=== PATIENT | male | born 2000 | race Caucasian/White ===

== ENCOUNTER 2023-12-28 00:05 | Outpatient (CLI) | payer OTHER | END 2023-12-28 23:59 | disposition critical access hospital (66) | LOC: EMS 00:05 | DX: R07.9 Chest pain, unspecified (principal); R68.84 Jaw pain; M79.602 Pain in left arm | CPT/HCPCS: A0425; A0427 ==

== ENCOUNTER 2023-12-28 00:23 | Emergency (ER) | payer OTHER ==
--- NOTE | 2023-12-28 00:23 | ED Physician Documentation ---
PD HPI CHEST PAIN - Stated complaint Stated Complaint: CP - History obtained from History obtained from: Patient - Additional information Additional information: HPI from patient. JEFF. Patient complains of left parasternal chest pain radiating to his jaw and down his left upper extremity. Symptoms started 2 days ago without inciting event. He says the pain is constant, waxing and waning. Symptoms seem worse when lying supine. Patient denies history of similar symptoms. He denies leg swelling, dyspnea, fever, cough. EMS noted initial BP of 192/110 and patient was c/o 9/10 pain; he was given 324 ASA and SLNTG x 1 and his pain decreased to 1/10 and BP 172/102. FSBS was 282; patient says he has been told he has had high blood sugars and is "prediabetic". Review of Systems Constitutional: reports: Reviewed and negative Cardiac: reports: Chest pain / pressure. denies: Palpitations, Pedal edema, Calf pain Respiratory: reports: Reviewed and negative GI: denies: Abdominal Pain, Nausea, Vomiting PD PAST MEDICAL HISTORY - Past Medical History Past Medical History: No - Past Surgical History General: Appendectomy - Present Medications Home Medications: Ambulatory Orders Medication Instructions Recorded Confirmed metFORMIN [Glucophage] 500 mg PO BIDWM #60 tablet 12/28/23 oxyCODONE [Roxicodone] 5 mg PO Q4-6H PRN #14 tablet 12/28/23 - Allergies Allergies/Adverse Reactions: Allergies Allergy/AdvReac Type Severity Reaction Status Date / Time Unable to Assess Allergy Verified 12/28/23 00:39 PD ED PE NORMAL - Vitals Vital signs reviewed: Yes - General General: Alert and oriented X 3, No acute distress, Well developed/nourished - Neck Neck: Supple, no meningeal sign - Cardiac Cardiac: RRR, No murmur, No gallop, No rub - Respiratory Respiratory: No respiratory distress, Clear bilaterally - Abdomen Abdomen: Soft, Non tender - Extremities Extremities: No edema Results - Vitals Vitals: Oxygen O2 Source Room air - EKG (time done) No standard instances EKG releavant findings:: EKG personally interpreted by author of this note. Relevant findings are: Rate: Rate (enter#) (99) Rhythm: NSR [place]: Normal Intervals: Normal [place] QRS: Normal Ischemia: Normal ST segments Computer interpretation: Disagree with computer (no ST depressions) #2 EKG releavant findings:: EKG personally interpreted by author of this note. Relevant findings are: Rate: Rate (enter#) (95) Rhythm: NSR [place]: Normal Intervals: Normal [place] QRS: Normal Ischemia: Normal ST segments Compare to prior EKG: Unchanged from prior EKG Computer interpretation: Disagree with computer (no ST depressions) - Labs Labs: Laboratory Tests 12/28/23 12/28/23 12/28/23 00:55 00:55 00:55 WBC 15.2 H RBC 5.41 Hgb 14.8 Hct 44.6 MCV 82.4 MCH 27.4 MCHC 33.2 RDW 12.2 Plt Count 345 MPV 9.6 Neut # (Auto) 12.1 H Lymph # (Auto) 2.2 [place] # (Auto) 0.7 Eos # (Auto) 0.1 Baso # (Auto) 0.1 Absolute Nucleated RBC 0.00 Nucleated RBC % 0.0 D-Dimer Sodium 134 L Potassium 3.9 Chloride 99 L Carbon Dioxide 26 Anion Gap 9.0 BUN 8 Creatinine 0.8 Estimated GFR (MDRD) 120 Glucose 346 H Estimat Average Glucose Hemoglobin A1c % Calcium 9.2 Total Bilirubin 0.5 AST 19 ALT 38 Alkaline Phosphatase 91 Troponin I High Sens 69.0 H* Total Protein 7.7 Albumin 4.1 Globulin 3.6 Albumin/Globulin Ratio 1.1 Lipase 15 Serum Ketones 12/28/23 12/28/23 12/28/23 00:55 00:55 01:12 WBC RBC Hgb Hct MCV MCH MCHC RDW Plt Count MPV Neut # (Auto) Lymph # (Auto) [place] # (Auto) Eos # (Auto) Baso # (Auto) Absolute Nucleated RBC Nucleated RBC % D-Dimer 207.1 Sodium Potassium Chloride Carbon Dioxide Anion Gap BUN Creatinine Estimated GFR (MDRD) Glucose Estimat Average Glucose 275 H Hemoglobin A1c % 11.2 H Calcium Total Bilirubin AST ALT Alkaline Phosphatase Troponin I High Sens Total Protein Albumin Globulin Albumin/Globulin Ratio Lipase Serum Ketones NEGATIVE 12/28/23 03:10 WBC RBC Hgb Hct MCV MCH MCHC RDW Plt Count MPV Neut # (Auto) Lymph # (Auto) [place] # (Auto) Eos # (Auto) Baso # (Auto) Absolute Nucleated RBC Nucleated RBC % D-Dimer Sodium Potassium Chloride Carbon Dioxide Anion Gap BUN Creatinine Estimated GFR (MDRD) Glucose Estimat Average Glucose Hemoglobin A1c % Calcium Total Bilirubin AST ALT Alkaline Phosphatase Troponin I High Sens 68.7 H* Total Protein Albumin Globulin Albumin/Globulin Ratio Lipase Serum Ketones - Rads (name of study) chest xray Relevant Findings:: Prelim report reviewed, See rad report PD Medical Decision Making - ED course Complexity details: reviewed results, re-evaluated patient, considered differential, d/w patient ED course: Mild leukocytosis on CBC (WBC 15.2). D-dimer is within normal range, and there are no concerning findings on EKG including a repeat EKG performed during ED stay when patient had recurrence of the chest pain. High-sensitivity troponin is 69 and a 2-hour repeat is unchanged (68.7). No abnormalities on chest x-ray. Blood sugar is 346 but serum ketones negative. He arrives in NAD but, during ED stay, he had recurrence of the chest pain appeared to be in mild to moderate painful distress. He is given 2 mg of IV morphine which resulted in rapid and c omplete relief of his symptoms. Etiology of patient's symptoms is not apparent at this time. We discussed the results and return precautions are reviewed. Given the hyperglycemia as well as the patient's report that he is "prediabetic", I am prescribing a 1-month supply of metformin. Hemoglobin A1c is drawn and sent, result pending at time of discharge (PCP can follow up with results). I am also prescribing a short course of oxycodone to be used PRN for recurrence of chest pain Departure - Departure Disposition: 01 Home, Self Care Clinical Impression: Hyperglycemia Chest pain Qualifiers: Chest pain type: unspecified Qualified Code(s): R07.9 - Chest pain, unspecified Condition: Good Instructions: ED Chest Pain Atypical Unkn Cause, ED Hyperglycemia New Susp Diabetes Prescriptions: metFORMIN [Glucophage] 500 mg PO BIDWM #60 tablet oxyCODONE [Roxicodone] 5 mg PO Q4-6H PRN #14 tablet PRN Reason: Pain >8 Comments: Both the initial and the repeat EKG do not have concerning findings; specifically, there is no evidence/pattern on these EKGs to suggest an acute cardiac problem such as angina/heart attack. Your troponin (cardiac enzyme blood test) came back mildly elevated above the normal range, but a 2-hour repeat check of this test was approximately the same value; this cardiac enzyme test does not specifically diagnose an acute cardiac problem, and the unremarkable EKGs combined with the 2-hour repeat showing no significant change from the initial value are reassuring results and suggest against an acute cardiac problem such as heart attack. The cause of your symptoms is not apparent at this time. The other blood tests and the chest x-ray were without diagnostic or concerning findings. An incident al finding on the blood test was a particularly elevated blood sugar (346). Your blood was negative for ketones; ketones accumulate in uncontrolled diabetes. While the lack of ketones in the blood is reassuring, it does not rule out diabetes. Just prior to discharge from the emergency department, we have sent another test to the lab called hemoglobin A1c. This result can be followed up by your primary care provider. The hemoglobin A1c will give your average blood sugar over the past 2-3 months. This is a particularly useful test to diagnose (or rule out) diabetes. Thus, at this point, diabetes is only a suspected diagnosis in your case. Because your blood sugar was significantly elevated tonight, I have electronically submitted a prescription for metformin to the [facility] pharmacy in [place]. I am providing a 30-day supply for this medication. This will help lower your blood sugar, but it is very important that you follow-up with an outpatient/primary care provider for reevaluation not only of your chest pain but also for reevaluation of your elevated blood sugars and, if necessary, a longer course of diabetic medication such as metformin. I have also submitted a prescription for a short course of oxycodone (narcotic/opiate pain medication) to be used as needed per the label instructions for chest pain that is not controlled with [id number] medications such as Tylenol or ibuprofen. I am prescribing a short course of narcotic pain medication for you. These are potentially dangerous and addictive medications that should be used carefully. These medications may constipate you. Take an xawm-ahb-zadtzkq stool softener (docusate) twice daily with plenty of water while taking these medications. If you go 24 hours without a bowel movement, take [id number] miralax, per package instructions. Do not drink or drive while taking these medications. If you received narcotic or sedating medications while in the emergency department, do not drive for 24 hours. Store this medication in a safe, secure place and out of reach of children. It is a violation of federal law to give or sell this medication to another person or to use in a manner other than prescribed. The ED will not refill narcotic prescriptions, including prescriptions lost or stolen. To dispose of unwanted medications: 1. [facility] at [address] in [place] has a medication drop box. They accept prescription medications (in pill form) Tuesday through Tuesday 9:00 a.m. to 5:00 p.m. 2. The [facility] accepts prescription medications (in pill form only) for disposal year round. Call for more information. 3. Contact the [facility] for the next [facility] sponsored prescription drug collection event. , [phone], or [phone]; Forms: PCP List Discharge Date/Time: 12/28/23 05:30
[2023-12-28 01:01] LABS: BASOPHILS # (AUTO) 0.1 10^3/uL (0.0-0.1); BASOPHILS % (AUTO) 0.5 %; EOSINOPHILS # (AUTO) 0.1 10^3/uL (0.0-0.7); EOSINOPHILS % (AUTO) 0.8 %; HCT - HEMATOCRIT 44.6 % (42.0-52.0); HGB - HEMOGLOBIN 14.8 g/dL (14.0-18.0); LYMPHOCYTES # (AUTO) 2.2 10^3/uL (1.5-3.5); LYMPHOCYTES % (AUTO) 14.2 %; MEAN CORPUSCULAR HEMOGLOBIN 27.4 pg (27.0-31.0); MEAN CORPUSCULAR HGB CONC 33.2 g/dL (32.0-36.0); MEAN CORPUSCULAR VOLUME 82.4 fL (80.0-94.0); MEAN PLATELET VOLUME 9.6 fL (7.4-11.4); MONOCYTES # (AUTO) 0.7 10^3/uL (0.0-1.0); MONOCYTES % (AUTO) 4.3 %; NEUTROPHILS # (AUTO) 12.1 10^3/uL (1.5-6.6); NEUTROPHILS % (AUTO) 79.9 %; PLT - PLATELET COUNT 345 10^3/uL (130-450); RED BLOOD COUNT 5.41 10^6/uL (4.70-6.10); RED CELL DISTRIBUTION WIDTH 12.2 % (12.0-15.0); WHITE BLOOD COUNT 15.2 x10^3/uL (4.8-10.8)
[2023-12-28 01:13] LABS: ALBUMIN 4.1 g/dL (3.2-5.5); ALBUMIN/GLOBULIN RATIO 1.1 (1.0-2.2); BILIRUBIN,TOTAL 0.5 mg/dL (0.2-1.0); CALCIUM 9.2 mg/dL (8.5-10.3); CREATININE 0.8 mg/dL (0.6-1.3); POTASSIUM 3.9 mmol/L (3.5-4.5); TOTAL PROTEIN 7.7 g/dL (6.4-8.9)
--- NOTE | 2023-12-28 01:32 | XRAY Report ---
PROCEDURE: Chest 2V INDICATIONS: chest pain TECHNIQUE: 2 views of the chest were acquired. COMPARISON: None. FINDINGS: Surgical changes and devices: None. Lungs and pleura: No pleural effusions or pneumothorax. Lungs are clear. Mediastinum: Mediastinal contours appear normal. Heart size is normal. Bones and chest wall: No suspicious bony lesions. Overlying soft tissues appear unremarkable. IMPRESSION: No acute cardiopulmonary process. Reviewed by: Sondra Cooper MD on 12/28/2023 1:30 AM [facility] Approved by: Sondra Cooper MD on 12/28/2023 1:30 AM [facility] Station ID: [id number]
[2023-12-28] MEDS: MORPHINE 2 MG/ML CARPUJECT IVP STA (02:21)
[2023-12-28 04:52] VITALS: BP 161/103; O2SAT 96
[2023-12-28 09:22] LABS: ESTIMATED AVERAGE GLUCOSE 275 mg/dL (70-100); HEMOGLOBIN A1c% 11.2 % (4.27-6.07)
== END 2023-12-28 05:30 | disposition home or self-care (01) ==
LOC: ED 00:23
DX: R07.9 Chest pain, unspecified (principal); R73.9 Hyperglycemia, unspecified
CPT/HCPCS: 36415; 80053; 82009; 83036; 83690; 84484; 85025; 85379; 93005; 96374; 99284

== ENCOUNTER 2024-07-19 15:52 | Emergency (ER) | payer OTHER ==
[2024-07-19 16:08] VITALS: BP 151/77; O2SAT 96
--- NOTE | 2024-07-19 16:12 | ED Physician Documentation ---
PD HPI UPPER EXT INJURY - Stated complaint Stated Complaint: RT HAND PX - Chief complaint Chief Complaint: Ext Problem - Additonal information Additional information: 24-year-old man no pertinent past medical history presents emerged part for right pinky pain. Patient said about 3 hours ago he attempted to catch a cornhole sac and caught it wrong and is now having pain to his right pinky joint he said that he read online about different pinky injuries and he is worried about his left finger. He is able to flex and extend the finger without difficulty but he is worried that he is not able to have full range of motion due to the tenderness. No obvious deformity. No history of previous injuries to the right pinky. PD PAST MEDICAL HISTORY - Past Medical History : Kidney stones - Past Surgical History General: Appendectomy - Present Medications Home Medications: Ambulatory Orders Medication Instructions Recorded Confirmed metFORMIN [Glucophage] 500 mg PO BIDWM #60 tablet 12/28/23 oxyCODONE [Roxicodone] 5 mg PO Q4-6H PRN #14 tablet 12/28/23 - Allergies Allergies/Adverse Reactions: Allergies Allergy/AdvReac Type Severity Reaction Status Date / Time No Known Drug Allergies Allergy Verified 07/19/24 15:59 - Social History Does the pt smoke?: No Smoking Status: Never smoker Does the pt drink ETOH?: Yes Substance Use and Type: Marijuana - POLST Patient has POLST: No PD ED PE NORMAL - Vitals Vital signs reviewed: Yes - General General: Alert and oriented X 3, No acute distress, Well developed/nourished - Extremities Extremities: Other (right hand: full rom to all five fingers including flexion and extension. right pink tenderness through DIP and PIP, no deformity. CMS intact.) - Psych Psych: Normal mood, Normal affect Results - Vitals Vitals: Vital Signs - 24 hr 07/19/24 15:59 Temperature 36.4 C L Heart Rate 106 H Respiratory 17 Rate Blood Pressure 151/77 H O2 Saturation 96 Oxygen O2 Source Room air PD Medical Decision Making - ED course ED course: 24-year-old male presents emergency department for right pinky pain and tenderness. Patient said that he looked up online that there is a possibility with his injury that he could get locked finger. I provided reassurance alignment of that he does not have locked finger especially given the fact that he has full range of motion to his MIP and DIP as well as MCP. There is no deformity there is minimal to no swelling there is tenderness with palpation he most likely experiencing just a contusion to his right pinky he was offered x- rays but says that once he is reassured that he does not have lock finger he feels comfortable to discharge. He was also offered Tylenol and Ibuprofen but kindly declined. Departure - Departure Disposition: 01 Home, Self Care Clinical Impression: Finger contusion Qualifiers: Encounter type: initial encounter Finger: little finger Damage to nail status: without damage Laterality: right Qualified Code(s): S60.051A - Contusion of right little finger without damage to nail, initial encounter Instructions: ED Contusion Hand Comments: Thank you for trusting us with your care. It does not appear that your finger is broken or dislocated. You can apply ice 20 minutes at a time do not leave the ice on for longer than 20 minutes at a period of time continue to use as normally opening closing the pinky and you can take Tylenol ibuprofen for pain or discomfort if after 7 to 10 days the pain has not improved you can follow-up with your primary care provider and consider possible x-rays but keep in mind this can take up to 6 weeks for it to fully resolve. Forms: PCP List Discharge Date/Time: 07/19/24 16:16
== END 2024-07-19 16:16 | disposition home or self-care (01) ==
LOC: ED 15:52
DX: S60.051A Contusion of right little finger without damage to nail, initial encounter (principal); W21.89XA Striking against or struck by other sports equipment, initial encounter; Y93.89 Activity, other specified
CPT/HCPCS: 99281; 99282

== ENCOUNTER 2024-07-26 08:00 | Outpatient (CLI) | payer OTHER ==
[2024-07-26 16:42] LABS: BILIRUBIN,URINE NEGATIVE (NEGATIVE); GLUCOSE, URINE (UA) NEGATIVE (NEGATIVE); KETONES,URINE (UA) NEGATIVE (NEGATIVE); LEUKOCYTE ESTERASE, URINE SMALL (NEGATIVE); NITRITE,URINE NEGATIVE (NEGATIVE); OCCULT BLOOD,URINE LARGE (NEGATIVE); PH,URINE 5.5 PH (5.0-7.5); PROTEIN,URINE NEGATIVE (NEGATIVE); UROBILINOGEN,URINE 0.2 (NORMAL) E.U./dL (NORMAL)
[2024-07-26 16:55] LABS: AMORPHOUS SEDIMENT,UR Few /LPF; BACTERIA,URINE Rare /HPF (None Seen); CLARITY,URINE HAZY (CLEAR); SQUAMOUS EPITHELIAL CELL,UR NONE SEEN (<= Few)
== END 2024-07-26 23:59 | disposition home or self-care (01) ==
LOC: LAB 08:00
PROVIDERS: ATTEND Urology
DX: N20.0 Calculus of kidney (principal)
CPT/HCPCS: 81001; 87086